=== PATIENT | male | born 1995 | race Caucasian/White ===

== ENCOUNTER 2023-11-20 02:34 | Emergency (ER) | payer BC, MEDICAID, OTHER | END 2023-11-20 03:26 | disposition home or self-care (01) | LOC: KA.ED 02:34 | DX: H61.21 Impacted cerumen, right ear (principal); Z79.899 Other long term (current) drug therapy | CPT/HCPCS: 69209; 99282-25 ==

== ENCOUNTER 2023-12-13 07:08 | Emergency (ER) | payer BC ==
[2023-12-13] MEDS: Ibuprofen 600 MG Tab PO ONE (07:22)
[2023-12-13] MEDS: Ibuprofen 600 MG Tab ONE (07:22)
[2023-12-13 07:27] VITALS: BP 131/98
[2023-12-13 07:53] VITALS: PULSE 80
== END 2023-12-13 08:03 | disposition home or self-care (01) ==
LOC: KA.ED 07:08
DX: H60.502 Unspecified acute noninfective otitis externa, left ear (principal); Z79.899 Other long term (current) drug therapy
CPT/HCPCS: 99283; A9270-GY